=== PATIENT | male | born 1960 | race Caucasian/White ===

== ENCOUNTER 2022-04-21 11:00 | Emergency (ER) | payer OTHER ==
[2022-04-21 11:14] VITALS: PULSE 80; RESP 18; TEMP 97.9
[2022-04-21] MEDS ORDERED: ACETAMINOPHEN TAB 325 MG TAB PO STA (11:37)
--- NOTE | 2022-04-21 12:04 | CT ---
EXAMINATION TYPE: CT brain cspine wo con CT DLP: 1446.5 mGycm, Automated exposure control for dose reduction was used. DATE OF EXAM: 04/21/2022 11:52 AM COMPARISON: None. CLINICAL INDICATION:Male, 61 years old with history of Fall; TECHNIQUE: Brain: Multiple axial CT images of the brain were obtained without IV contrast. Cspine: Axial CT images from the skull base to the inferior aspect of T2 we obtained without intraven ous contrast. Coronal and sagittal reformatted images were also reviewed. FINDINGS: Brain: Extra-axial spaces: No abnormal extra-axial fluid collections. Ventricular system: Within normal limits Cerebral parenchyma: No acute intraparenchymal hemorrhage or mass effect. The mcguire-white junction is well differentiated. Cerebellum: Unremarkable. Mass effect: No evidence of midline shift. Intracranial vasculature: unremarkable Soft tissues: Normal. Calvarium/osseous structures: No depressed skull fracture. Paranasal sinuses and mastoid air cells: Moderate scattered paranasal sinus disease with opacificatio n of the visualized right frontal and majority of the right anterior ethmoidal air cells. Visualized orbits: Orbital contents are intact. Cervical spine: Fracture: None. Osseous structures: Multilevel degenerative disc disease changes with endplate spurring and disc oste ophyte complex's. Vertebral alignment: Within normal limits. Spinal canal/Neural Foramina: No evidence of significant spinal canal narrowing. No evidence for sign ificant neural foraminal stenosis. Neck soft tissues: Prevertebral soft tissues are within normal limits. Other: The airway is patent. The lung apices are clear. IMPRESSION: 1. No acute intracranial process. 2. No evidence of cervical spine fracture. 3. Mild multilevel degenerative disc disease. 4. Moderate paranasal sinus disease most pronounced in the right frontal sinus and right ethmoid air cells.
--- NOTE | 2022-04-21 12:06 | ED ---
Fall HPI - General Chief Complaint: Fall Stated Complaint: fall, head injury, on thinners Time Seen by Provider: 04/21/22 11:23 Source: patient, family, RN notes reviewed Mode of arrival: ambulatory - History of Present Illness Initial Comments: This is a 61-year-old male who presents to the emergency department for a fall. States that this morning, he was on a walk. [place] he proceeded to slip on ice and fall, hitting the back of his head. He does take a baby aspirin daily and no other blood thinners. Denies any loss of consciousness. States that when he got home, he started feeling nauseous and somewhat dizzy. Currently has pain to the back of his head and neck. He has not taken anything to treat his symptoms. Denies any fevers, chills, sore throat, cough, dyspnea, chest pain, palpitations, abdominal pain, nausea, vomiting, or diarrhea. MD Complaint: fall Location: head Context: tripped/slipped - Related Data Previous Rx's Medication Instructions Recorded Ibuprofen 800 mg PO Q8H PRN #20 tab 04/21/22 Allergies Allergy/AdvReac Type Severity Reaction Status Date / Time No Known Allergies Allergy Verified 04/21/22 11:14 Review of Systems ROS Statement: Those systems with pertinent positive or pertinent negative responses have been documented in the HPI. ROS Other: All systems not noted in ROS Statement are negative. Past Medical History Past Medical History: Diabetes Mellitus, Hyperlipidemia, Hypertension History of Any Multi-Drug Resistant Organisms: None Reported Past Surgical History: Cholecystectomy, Hernia Repair Past Psychological History: No Psychological Hx Reported Smoking Status: Never smoker Past Alcohol Use History: Rare Past Drug Use History: None Reported General Exam Limitations: no limitations General appearance: alert, in no apparent distress Head exam: Present: other (Hematoma with mild abrasion to the middle of the occiput. No active bleeding.) ENT exam: Present: normal exam, mucous membranes moist, TM's normal bilaterally, normal external ear exam Neck exam: Present: tenderness (Posterior cervical spine) Respiratory exam: Present: normal lung sounds bilaterally. Absent: respiratory distress, wheezes, rales, rhonchi, stridor Cardiovascular Exam: Present: regular rate, normal rhythm, normal heart sounds. Absent: systolic murmur, diastolic murmur, rubs, gallop, clicks Neurological exam: Present: alert, oriented X3, CN II-XII intact Psychiatric exam: Present: normal affect, normal mood Skin exam: Present: warm, dry, intact, normal color. Absent: rash Course Vital Signs 04/21/22 04/21/22 11:10 12:41 Temperature 97.9 F Pulse Rate 80 80 Respiratory 18 18 Rate Blood Pressure 134/77 124/73 O2 Sat by Pulse 99 97 Oximetry Medical Decision Making - Medical Decision Making This is a 61-year-old male who presents to the emergency department for a fall. Tylenol administered for pain. CT scan of the brain and c-spine obtained. My interpretation identifies no signs of an acute intracranial hemorrhage or skull/cervical spine fractures. Rx for ibufrofen provided. Advised he alternate taking this with Tylenol. Also instructed he apply ice for 10-15 minutes every 2-3 hours. Return precautions reviewed in depth, the patient is instructed to return to the emergency department with any new, worsening, or concerning symptoms. Patient verbalized understanding. This case was discussed in detail with the attending ED physician. Presentation, findings, and treatment plan discussed in detail as well. - Radiology Data Radiology results: report reviewed, image reviewed Disposition Clinical Impression: Fall, Hematoma of occipital surface of head Disposition: HOME SELF-CARE Instructions (If sedation given, give patient instructions): Fall Prevention for Older Adults (ED), Contusion in Adults (ED), Hematoma (ED) Additional Instructions: Return to the emergency department with any new, worsening, or concerning symptoms. Alternate with Ibuprofen and Tylenol as needed for pain relief. You can apply ice for 10-15 minutes every 2-3 hours for the first 2-3 days followed by heat there afterwards to help with swelling and inflammation. Follow up with your primary care provider in 1-2 days. Prescriptions: Ibuprofen 800 mg PO Q8H PRN #20 tab PRN Reason: Pain Is patient prescribed a controlled substance at d/c from ED?: No Referrals: Stan Mendoza MD [Primary Care Provider] - 1-2 days
[2022-04-21] MEDS ORDERED: ACET/COD 300 MG/30 MG STARTER PACK 6 TAB BTL PO STA (12:30)
[2022-04-21 12:43] VITALS: BP 124/73
== END 2022-04-21 12:43 | disposition home or self-care (01) ==
LOC: EC 11:00
DX: S00.03XA Contusion of scalp, initial encounter (principal); I10 Essential (primary) hypertension; E11.9 Type 2 diabetes mellitus without complications; W00.0XXA Fall on same level due to ice and snow, initial encounter
CPT/HCPCS: 70450; 72125; 99284